=== PATIENT | female | born 1995 | race Caucasian/White ===

== ENCOUNTER 2025-01-22 09:20 | Emergency (ER) | payer MEDICAID, SELFPAY ==
--- NOTE | ~2025-01-22 | US_ITS ---
EXAMINATION: US venous doppler LE , 01/22/2025 11:38 EXTENDED INSURANCE CLERK HISTORY: LEFT LEG PAIN Comparison: None Technique: Gan-scale and color Doppler images were attempted of the lower saphenofemoral junction, common femoral vein,superficial femoral vein, proximal deep femoral vein, proximal deep femoral vein, popliteal vein and posterior tibial veins. Findings: Deep Venous System:Normal flow, augmentation and compressibility. No echogenic thrombus identified. The contralateral saphenofemoral junction appears unremarkable. Superficial Venous SystemNo superficial thrombophlebitis. Soft tissues: Soft tissues are unremarkable. Impression: Negative for DVT. Reviewed, dictated and finalized at location P. NDED INSURANCE CLERK Impression: Negative for DVT.
[2025-01-22 09:22] VITALS: BP 154/100; PULSE 96; RESP 16; TEMP 36.1; O2SAT 100
[2025-01-22 12:17] VITALS: BP 148/105; PULSE 76; RESP 16; O2SAT 100
--- NOTE | 2025-01-22 12:41 | ED.EXTPRO ---
HPI - Extremity Problem General Chief complaint: Extremity Problem,Nontraumatic Stated complaint: left leg pain for 6 months Time Seen by Provider: 01/22/25 10:56 Source: patient Mode of arrival: ambulatory Limitations: no limitations History of Present Illness HPI Narrative: Patient is a 29-year-old female who presents the ED with report of pain throughout her left lateral thigh. Patient reports she has had pain for the past 4-6 months. She has home pain from her left lateral knee up into her left lateral hip. To has previously seen a surgeon for this in [place] and told she had ligament and muscle injury. Was referred to physical therapy and also provided with meloxicam. She denies improvement with either of these. Denies any recent fall or injury. Denies numbness or swelling. Denies history of blood clots. Related Data Allergies Allergy/AdvReac Type Severity Reaction Status Date / Time No Known Allergies Allergy Verified 01/22/25 09:25 Review of Systems Review of Systems: All systems reviewed & are unremarkable except as noted in HPI. All systems reviewed & are unremarkable except as noted in HPI and below Exam Narrative: GENERAL: Well appearing, morbidly obese with BMI of 50.0, non-toxic, in no acute distress. HEAD: Normocephalic, atraumatic. RESPIRATORY: Airway patent, respirations nonlabored. Clear to auscultation bilaterally, no rales, rhonchi, wheezing. CARDIOVASCULAR: Regular rate and rhythm without murmurs, rubs, or gallops. Pedal pulses intact and easily palpable MUSCULOSKELETAL: Moves all extremities. No gross deformities. No appreciable swelling throughout LLE. Minimal TTP throughout L lateral thigh SKIN: Warm, dry, normal color. Normal capillary refill throughout left foot and toes. NEURO: A&O X3. Speech clear. Cranial nerves II-XII grossly intact. Steady gait. No ataxic movements. PSYCHIATRIC: Appropriate mood and affect. Normal interaction. Course Vital Signs Vital signs: Vital Signs Temperature 97.0 F L 01/22/25 09:22 Pulse Rate 96 01/22/25 09:22 Respiratory Rate 16 01/22/25 09:22 Blood Pressure 154/100 H 01/22/25 09:22 Pulse Oximetry 100 01/22/25 09:22 Oxygen Delivery Room Air 01/22/25 09:22 Temperature 97.0 F L 01/22/25 09:22 Pulse Rate 76 01/22/25 12:17 Respiratory Rate 16 01/22/25 12:17 Blood Pressure 148/105 H 01/22/25 12:17 Pulse Oximetry 100 01/22/25 12:17 Oxygen Delivery Room Air 01/22/25 09:22 MDM - Extremity (Nontraumatic) MDM Narrative Medical decision making narrative: Patient?s injury is consistent with musculoskeletal etiology. No signs of neurologic or vascular compromise on physical examination. Compartments are soft without signs of compartment syndrome. Venous Doppler US negative for DVT. Patient denies any recent hx of fall/injury to suggest need for further XR imaging. Patient advised to follow-up with client success specialist for further evaluation of previously diagnosed muscular/ligament injury. Discussed rice therapy. Discussed return precautions. Discharged in stable condition Medical Records Attestation: I reviewed the patient's medical records. Imaging Data Attestation: I personally reviewed and interpreted this imaging study as follows: Radiologist's impression: ITS Impressions Venous Doppler Study 01/22/25 12:15 Impression: Negative for DVT. Discharge Plan Discharge Clinical Impression: Chronic pain of left lower extremity Patient Disposition: Home Condition: Stable Instructions: Antibiotic Form, Leg Sprain (ED) Additional Instructions: Follow-up with your client success specialist for further evaluation. Continue ice, heat, Tylenol/ibuprofen as needed for pain. Return for new injury, severe pain, numbness, or any other symptoms of concern. Patient Language: Italian Follow-up/Referrals: Sacha Boo MD [Physician, Orthopedics] Referral Note: ORTHOPEDICS PHYSICIAN,DAY GUARD [Primary Care Provider, Internal Medicine] Time of Disposition: 12:43
[2025-01-22] MEDS: KETOROLAC (*BKC) 60 MG/2 ML VIAL IM (13:09)
--- OUTSIDE RECORDS SUMMARY | 2025-01-22 14:23 | XMS_ITS | Encounter Summary ---
Author Organization [facility] Health Address [address] [place] [address] Care Team Providers Care Agility Instructor Name Role Phone Unknown, Provider Primary Care Provider Unavaila ble Encounter Details Date Type Department Care Team (Late st Contact Info) Description 11/29/2017 Ophth Exam [facility] [address] [place] [address] Rajan Jimenez MD [address] [place] [address] Social History Tobacco Use Types Packs/Day Years Used Date Smoking Tobacco: Every Day Cigarettes 1 14 Smokeless Tobacco: Current Alcohol Use Standard Drinks/Week Comments No 0 (1 standard drink = 0.6 oz pur e alcohol) Comments No Sex and Gender Information Value Date Recorded Sex Assigned at Not on file 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 Answer Date of Assessment Author No 07/18/2017 6:25 PM Landy Conte RN * Is person blind or have serious difficulty seeing? Answer Date of Assessment Author No 07/18/2017 6:25 PM Landy Conte RN * Does person have serious difficulty walking/climbing stairs? Answer Date of Assessment Author No 07/18/2017 6:25 PM Landy Conte RN * Does person have difficulty dressing/bathing? Answer Date of Assessment Author No 07/18/2017 6:25 PM Landy Conte RN * Does person have difficulty doing errands alone? Answer Date of Assessment Author No 07/18/2017 6:25 PM Landy Conte RN documented as of this encounter Mental Status * Does person have difficulty concentrating/remembering/making decisions? Answer Entry Date Author No 07/18/2017 6:25 PM Landy Conte RN documented in this encounter Plan of Treatment Not on file documented as of this encounter Visit Diagnoses Not on filedocumented in this encounter Care Teams Agility Instructor Relationship Specialty Start Date End Date Unknown, Provider PCP - General 07/18/24 documented as of this encounter
--- OUTSIDE RECORDS SUMMARY | 2025-01-22 14:23 | XMS_ITS | Clinical Summary ---
Author Organization [facility] Address [address] [place] [address] Phone Care Team Providers Care Industrial Organizational Psychologist Name Role Phone Unavailable Primary Care Provider Unavailabl e Allergies Active Allergy Reactions Criticality Noted Date Comments Cinnamon Anaphylaxis,Rash High 07/18/2017 Medications albuterol sulfate HFA 90 mcg/actuation aerosol inhaler Take 2 Puffs by inhalation every 6 hours as needed. Active naproxen (NAPROSYN) 500 mg tablet Take 1 Tablet (500 mg) by mouth every 12 hours as needed for Pain, Moderate. 30 Tablet 1 4 Active estradioL (ESTRACE) 0.01% (0.1 mg/g) vaginal cream Insert vaginally daily. Active famotidine (PEPCID) 20 mg tablet Take 20 mg by mouth 2 times daily. Active Active Problems Problem Noted Date Diagnosed Date Group beta Strep positive 07/23/2017 07/18/2017 Encounters Date Type Department Care Team Description 12/16/2024 External Device Data [facility] ABSTRACTION Provider, Abstract 11/04/2024 External Device Data [facility] ABSTRACTION Provider, Abstract 10/22/2024 External Device Data [facility] ABSTRACTION Provider, Abstract from Last 3 Months Social History Tobacco Use Types Packs/Day Years Used Date Smoking Tobacco: Every Day Cigarettes Tobacco Cessation:Ready to Q uit: Not Asked; Counseling Given: Not Answered Alcohol Use Standard Drinks/Week Comments Yes 0 (1 standard drink = 0.6 oz pur e alcohol) Occasionally Feeling Safe Answer Date Recorded Are you in a relationship wi th someone who hurts you emotionally and/or physically? No 06/13/2023 Food Insecurity Answer Date Recorded Social/Environmental Concerns No concerns Transportation Needs Answer Date Record ed Social/Environmental Concerns No concerns Housing Stability Answer Date Recorded Social/Environmental Concerns No concerns Utility Needs Answer Date Recorded Social/Environmental Concerns No concerns Comments No Sex and Gender Information Value Date Recorded Sex Assigned at Not on file Legal Sex Female 1:02 PM CDT Gender Identity Not on file Sexual Orientation Not on file Last Filed Vital Signs Vital Sign Reading Time Taken Comments Blood Pressure 120/70 06/27/2023 10:59 AM CDT Pulse 70 06/27/2023 10:59 AM CDT Temperature 36.7 C (98 F) 06/27/2023 10:59 AM CDT Respiratory Rate 18 06/13/2023 11:31 PM CDT Oxygen Saturation 99% 06/27/2023 10:59 AM CDT Inhaled Oxygen Concentration - - Weight 117.2 kg (258 lb 6 oz) 06/27/2023 10:59 A M CDT Height 165.1 cm (5' 5) 06/27/2023 10:59 AM CDT Body Mass Index 43 06/27/2023 10:59 AM CDT Plan of Treatment Health Maintenance Due Date Last Done Comments HEPATITIS B VACCINES (1 of 3 - 19+ 3-dose series) 2014 HPV/Cotest (21-29) 2016 HPV VACCINES (1 - 3-dose SCDM series) 2022 INFLUENZA VACCINE (#1) 2024 07/09/2018 CERVICAL CANCER SCREENING 05/01/2026 PAP SMEAR 05/01/2026 05/01/2023 DTAP/TDAP/TD VACCINES (3 - Td or Tdap) 07/09/2028, 11/29/2017 Medical Devices Implanted Type Area Electronic Equipment Repairmen Device Identifier Shelf Expiration Date Model / Serial / Lot Iud Control Left Arm Procedures Procedure Name Priority Date/Time Associated Diagnosis Comments CERV/VAG CYTO AGE BASED SCREEN PAP Routine 05/01/2023 12:24 PM FABRICATOR FOAM RUBBER Well woman exam with routine gynecological exam from Last 3 Months or Most Recently Relevant to Health Maintenance Results * CERV/VAG CYTO AGE BASED SCREEN PAP (05/01/2023 12:24 PM FABRICATOR FOAM RUBBER) COMMENT (PAP): Robbin AminJoy Carrillo Comment: This order for age-based cervical cancer and STI screening follows ACOG guidelines(PB 168, 140, JPD234). See individual assays for performing site location. CLINICAL INFORMATION Robbin EloisaJoy Carrillo Comment:None given LAST MENSTRUAL PERIOD Robbin Carrillo Comment:02/19/2023 PREV PAP: Robbin EloisaJoy Carrillo Comment:NONE GIVEN PREV BX: Robbin EloisaJoy Carrillo Comment:NONE GIVEN SOURCE Robbin AminJoy Carrillo Comment:Endocervix ADEQUACY: Robbin Carrillo Comment: Satisfactory for evaluation. Endocervical/transformation zone component present. PAP INTERP Robbin Carrillo Comment: Cytology Results: Negative for intraepithelial lesion or malignancy. CYTOLOGY INFECTION Q uradha Marielos Carrillo Comment: Shift in vaginal qi suggestive of bacterial vaginosis. COMMENT (PAP TEST) Q madeline Marielos Carrillo Comment: This Pap test has been evaluated with computer assisted technology. RETAIL SALES DIRECTOR: Gustabo Carrillo Comment: KMS, CT(ASCP) CT Screening location: [place] [address] [address] Marielos Carrillo Comment: EXPLANATORY NOTE: The Pap is a screening test for cervical cancer. It is not a diagnostic test and is subject to false negative and false positive results. It is most reliable when a satisfactory sample, regularly obtained, is submitted with relevant clinical findings and history, and when the Pap result is evaluated along with historic and current clinical information. Test Performed at: [place] [address] [address] [address] Sheryl Narvaez Genital SWAB OF ENDOCERVIX / Unknown 05/01/2023 12:24 PM FABRICATOR FOAM RUBBER 05/01/2023 10:51 PM FABRICATOR FOAM RUBBER Beck Shoemaker MD PATHOLOGY/CYTOLOGY ORDERABLE S Final Result [facility] [phone] [place] [address] [address] [address] from Last 3 Months or Most Recently Relevant to Health Maintenance Insurance [employer] [place] [employer] [facility] [employer] Advance Directives For more information, please contact: [phone] * Full Code (Latest Code Status on File) Date Activated Date Inactivated Comments 06/07/2023 6:09 AM 06/07/2023 6:16 PM
--- OUTSIDE RECORDS SUMMARY | 2025-01-22 14:23 | XMS_ITS | Data Portability ---
Author Organization [facility] Address [address] [place] [address] Assessment No assessment recorded. Plan of Treatment Reminders Order Date Submit Date Provider Last Modified By Organization Details Last Modified Time Details Appointments None recorded. Lab drug screen, urine 2024 025 [facility], [address], [place], [address], 17:21:04 ferritin, serum or plasma 2024 025 [facility], [address], [place], [address], 13:11:49 iron, serum 2024 025 [facility], [address], [place], [address], 5 13:11:48 TSH, ultra-sensi tive, serum 2024 025 [facility], [address], [place], [address], 5 09:14:27 basic metabolic 1998 panel, serum or plasma 2024 025 [facility], [address], [place], [address], 5 09:14:22 CBC 2024 025 [facility], [address], [place], [address], 5 09:14:28 urinalysis macro (dipstick) panel, urine 2024 025 [facility], [address], [place], [address], 5 09:14:25 HbA1c (hemoglobin A1c), blood 2024 025 [facility], [address], [place], [address], 5 09:14:24 lipid panel, serum 2024 025 [facility], [address], [place], [address], 5 09:14:21 test, urine 2021 022 [email or web address] In-Office Order, Internal Use Only DO Not Attach Compendium DO Not Attach Compendium, Do Not Delete/merge, [id number] 2 15:08:33 Referral physical therapist referral - left cubital tunnel syndrome 2023 024 [email or web address] [facility], [address] [place], [address], 4 18:50:05 Procedures None recorded. Surgeries None recorded. Imaging XR, knee - Recent fall, pain lateral aspect of the left Patella 2024 025 [facility], [address] [place], [address], 5 15:51:06 Medication Orders ketorolac 60 mg/2 mL intramuscul ar solution 2024 025 [email or web address] Not available 5 16:38:48 ketorolac 10 mg tablet 2024 025 [facility] #[id number], [address], [place], [address], 15:34:06 naproxen 500 mg tablet 2024 025 [facility] #[id number], [address], [place], [address], 15:34:15 Patient TargetsNo targets recorded. Patient Instructions Encounter Date Encounter Id Patient Instructions Last Modified By Organization Details Last Modified Time 10/29/2023 [id number] On the date of this encounter, I was immediately available to assist the resident/fellow in the care of the patient, and have reviewed and agree with the resident s findings and plan of care. ~MD Abhi [email or web address] Not available 11/06/2023 10:25:55 04/07/2024 [id number] Local care ER report, please Labs Complete the course of Bactrim Use Naproxen or Ibuprofen, but not both Follow up in 3 weeks [email or web address] Not available 04/07/2024 13:08:49 06/04/2024 [id number] A healthy lifestyle: care instructions [email or web address] Not available 06/04/2024 12:50:11 body mass index: care instructions [email or web address] Not available 06/04/2024 12:50:11 learning about healthy weight [email or web address] Not available 06/04/2024 12:50:11 Labs, old and ne w orders Xray Motrin Follow up in 2 weeks [email or web address] Not available 06/04/2024 12:47:55 06/17/2024 [id number] Orthopedics as referred Ketorolac (Toradol) and Tylenol Stop Naproxen and all other NSAIDS Follow up in 6 weeks [email or web address] Not available 06/17/2024 15:35:50 Reason for Referral Physical Therapist Referral for Ulnar nerve entrapment at elbow left cubital tunnel syndrome left cubital tunnel syndrome Referring Physician: Patricia Mcpherson, [employer], Encounter Date: 10/29/2023 Results Created Date Observation Date Name Description Value Unit Range Abnormal Flag Note LastModifiedBy Organization Detail LastModifiedTime 09/02/19 22 09/01/2021 pregn maurizio test, urine HCG negati ve Not Available In-Office Order Internal Use Only DO Not Attach Compendium DO Not Attach Compendium, Do Not Delete/merge, [id number] 09/01/2021 11:09:47 06/05/19 25 06/05/2024 LIPID PANEL cholesterol, total 170 mg/dL 100-19 9 Not Available [facility] ([facility]) [address] [place], [address], 06/05/2024 09:14:21 06/05/19 25 06/05/2024 LIPID PANEL triglyceride s 155 mg/dL 0-149 above high normal Not Available [facility] ([facility]) [address] [place], [address], 06/05/2024 09:14:21 06/05/19 25 06/05/2024 LIPID PANEL HDL cholesterol 46 mg/dL >39 Not Available [facility] ([facility]) [address] [place], [address], 06/05/2024 09:14:21 06/05/19 25 06/05/2024 LIPID PANEL VLDL cholesterol em 27 mg/dL 5-40 Not Available [facility] ([facility]) [address] [place], [address], 06/05/2024 09:14:21 06/05/19 25 06/05/2024 LIPID PANEL LDL chol calc ([facility]) 97 mg/dL 0-99 Not Available [facility] ([facility]) [address] [place], [address], 06/05/2024 09:14:21 06/05/19 25 06/05/2024 BASIC METAB OLIC PANEL (7) glucose 90 mg/dL 70-99 Not Available [facility] ([facility]) [address] [place], [address], 06/05/2024 09:14:22 06/05/19 25 06/05/2024 BASIC METAB OLIC PANEL (7) BUN 11 mg/dL 6-20 Not Available [facility] ([facility]) [address] [place], [address], 06/05/2024 09:14:22 06/05/19 25 06/05/2024 BASIC METAB OLIC PANEL (7) creatinine 0.72 mg/dL 0.57-1 .00 Not Available [facility] ([facility]) [address] [place], [address], 06/05/2024 09:14:22 06/05/19 25 06/05/2024 BASIC METAB OLIC PANEL (7) eGFR 116 mL/mi n/1.7 3 >59 Not Available [facility] ([facility]) [address] [facility], [place], [address], 06/05/2024 09:14:22 06/05/19 25 06/05/2024 BASIC METAB OLIC PANEL (7) BUN/creatini ne ratio 15 9-23 Not Available [facility] ([facility]) [address] [place], [address], 06/05/2024 09:14:22 06/05/19 25 06/05/2024 BASIC METAB OLIC PANEL (7) sodium 140 mmol/ L 134-14 4 Not Available [facility] ([facility]) [address] [place], [address], 06/05/2024 09:14:22 06/05/19 25 06/05/2024 BASIC METAB OLIC PANEL (7) potassium 4.7 mmol/ L 3.5-5. 2 Not Available [facility] ([facility]) [address] [place], [address], 06/05/2024 09:14:22 06/05/19 25 06/05/2024 BASIC METAB OLIC PANEL (7) chloride 103 mmol/ L 96-106 Not Available [facility] ([facility]) [address] [facility], [place], [address], 06/05/2024 09:14:22 06/05/19 25 06/05/2024 BASIC METAB OLIC PANEL (7) carbon dioxide, total 22 mmol/ L 20-29 Not Available [facility] ([facility]) [address] [facility], [place], [address], 06/05/2024 09:14:22 06/05/19 25 06/05/2024 MICRO SCOPI C EXAMI NATIO N WBC 6-10 /hpf 0-5 abnormal Not Available [facility] ([facility]) [address] [facility], [place], [address], 06/05/2024 09:14:23 06/05/19 25 06/05/2024 MICRO SCOPI C EXAMI NATIO N RBC 3-10 /hpf 0-2 abnormal Not Available [facility] ([facility]) [address] [facility], [place], [address], 06/05/2024 09:14:23 06/05/19 25 06/05/2024 MICRO SCOPI C EXAMI NATIO N epithelial cells (non renal) 0-10 /hpf 0-10 Not Available [facility] ([facility]) [address] [facility], [place], [address], 06/05/2024 09:14:23 06/05/19 25 06/05/2024 MICRO SCOPI C EXAMI NATIO N casts NONE SEEN /lpf nonese en Not Available [facility] ([facility]) [address] [facility], [place], [address], 06/05/2024 09:14:23 06/05/19 25 06/05/2024 MICRO SCOPI C EXAMI NATIO N bacteria FEW nonese en/few Not Available [facility] ([facility]) [address] [facility], [place], [address], 06/05/2024 09:14:23 04/02/20 25 06/05/2024 HEMOG LOBIN A1C hemoglobin A1C 5.5 % 4.8-5. 6 Predi abete s: 5.7 - 6.4 Diabe kelley: >6.4 Glyce alin contr ol for adult s with diabe kelley: <7.0 Not Available [facility] ([facility]) [address] [place], [address], 06/05/2024 09:14:24 06/05/19 25 06/05/2024 URINA LYSIS , ROUTI NE specific gravity 1.028 1.005- 1.030 Not Available [facility] ([facility]) [address] [place], [address], 06/05/2024 09:14:25 06/05/19 25 06/05/2024 URINA LYSIS , ROUTI NE pH 5.5 5.0-7. 5 Not Available [facility] ([facility]) [address] [place], [address], 06/05/2024 09:14:25 06/05/19 25 06/05/2024 URINA LYSIS , ROUTI NE urine-color YELLOW yellow Not Available [facility] ([facility]) [address] [place], [address], 06/05/2024 09:14:25 06/05/19 25 06/05/2024 URINA LYSIS , ROUTI NE appearance CLEAR clear Not Available [facility] ([facility]) [address] [place], [address], 06/05/2024 09:14:25 06/05/19 25 06/05/2024 URINA LYSIS , ROUTI NE WBC esterase 1+ negati ve abnormal Not Available [facility] ([facility]) [address] [place], [address], 06/05/2024 09:14:25 06/05/19 25 06/05/2024 URINA LYSIS , ROUTI NE protein TRACE negati ve/tra ce Not Available [facility] ([facility]) [address] [facility], [place], [address], 06/05/2024 09:14:25 06/05/1906/05/2024 URINA LYSIS , ROUTI NE glucose NEGATI VE negati ve Not Available [facility] ([facility]) [address] [place], [address], 06/05/2024 09:14:25 06/05/1906/05/2024 URINA LYSIS , ROUTI NE ketones TRACE negati ve abnormal Not Available [facility] ([facility]) [address] [place], [address], 06/05/2024 09:14:25 06/05/1906/05/2024 URINA LYSIS , ROUTI NE occult blood 2+ negati ve abnormal Not Available [facility] ([facility]) [address] [place], [address], 06/05/2024 09:14:25 06/05/1906/05/2024 URINA LYSIS , ROUTI NE bilirubin NEGATI VE negati ve Not Available [facility] ([facility]) [address] [place], [address], 06/05/2024 09:14:25 06/05/1906/05/2024 URINA LYSIS , ROUTI NE urobilinogen ,semi-qn 0.2 mg/dL 0.2-1. 0 Not Available [facility] ([facility]) [address] [place], [address], 06/05/2024 09:14:25 06/05/1906/05/2024 URINA LYSIS , ROUTI NE nitrite, urine NEGATI VE negati ve Not Available [facility] ([facility]) [address] [place], [address], 06/05/2024 09:14:25 06/05/1906/05/2024 URINA LYSIS , ROUTI NE microscopic examination SEE BELOW: Micro josesito baker was indic ated and was perfo rmed. Not Available [facility] ([facility]) [address] [facility], [place], [address], 06/05/2024 09:14:25 06/05/1906/05/2024 TSH TSH 1.170 uIU/m L 0.450- 4.500 Not Available [facility] ([facility]) [address] [facility], [place], [address], 06/05/2024 09:14:27 06/05/1906/05/2024 CBC, PLATE LET, NO DIFFE RENTI AL WBC 9.4 x10e3 /uL 3.4-10 .8 Not Available [facility] ([facility]) [address] [place], [address], 06/05/2024 09:14:28 06/05/1906/05/2024 CBC, PLATE LET, NO DIFFE RENTI AL RBC 4.78 x10e6 /uL 3.77-5 .28 Not Available [facility] ([facility]) [address] [place], [address], 06/05/2024 09:14:28 06/05/1906/05/2024 CBC, PLATE LET, NO DIFFE RENTI AL hemoglobin 14.0 g/dL 11.1-1 5.9 Not Available [facility] ([facility]) [address] [place], [address], 06/05/2024 09:14:28 06/05/1906/05/2024 CBC, PLATE LET, NO DIFFE RENTI AL hematocrit 43.1 % 34.0-4 6.6 Not Available [facility] ([facility]) [address] [place], [address], 06/05/2024 09:14:28 06/05/1906/05/2024 CBC, PLATE LET, NO DIFFE RENTI AL MCV 90 fL 79-97 Not Available [facility] ([facility]) [address] [facility], [place], [address], 06/05/2024 09:14:28 06/05/1906/05/2024 CBC, PLATE LET, NO DIFFE RENTI AL MCH 29.3 pg 26.6-3 3.0 Not Available [facility] ([facility]) [address] [facility], [place], [address], 06/05/2024 09:14:28 06/05/1906/05/2024 CBC, PLATE LET, NO DIFFE RENTI AL MCHC 32.5 g/dL 31.5-3 5.7 Not Available [facility] ([facility]) [address] [place], [address], 06/05/2024 09:14:28 06/05/1906/05/2024 CBC, PLATE LET, NO DIFFE RENTI AL RDW 12.2 % 11.7-1 5.4 Not Available [facility] ([facility]) [address] [place], [address], 06/05/2024 09:14:28 06/05/1906/05/2024 CBC, PLATE LET, NO DIFFE RENTI AL platelets 375 x10e3 /uL 150-45 0 Not Available [facility] ([facility]) [address] [place], [address], 06/05/2024 09:14:28 06/05/1906/05/2024 IRON iron 84 ug/dL 27-159 Not Available [facility] ([facility]) [address] [place], [address], 06/05/2024 13:11:48 06/05/19 25 06/05/2024 JOSE A TIN ferritin 59 NG/mL 15-150 Not Available [facility] ([facility]) [address] [place], [address], 06/05/2024 13:11:49 06/18/19 25 06/17/2024 [id number] 7 DRUG- SCR drug screen comment: COMMEN T This janki sis is perfo rmed by immun oassa y. Posit rocky findi ngs are uncon firme d janki tical test resul ts; if resul ts do not suppo rt expec anyi clini em findi ng, confi rmati on by an alter rashad metho dolog y is recom anahi d. Patie nt metab olic varia bles, speci fic drug chemi stry, and speci men carlos cteri stics can affec t test outco me. Techn ical consu ltati on is avail able at dionte tay [email or web address] [email or web address] om, or call toll free [phone]. Not Available [facility] ([facility]) [address] [facility], [place], [address], 06/18/2024 17:21:04 06/18/19 25 06/18/2024 [id number] 0 7 DRUG- SCR amphetamines , urine NEGATI VE NG/mL cutoff =1000 Amphe tamin e test inclu kathleen Amphe tamin e and Metha mphet amine . Not Available [facility] ([facility]) [address] [place], [address], 06/18/2024 17:21:04 06/18/19 25 06/18/2024 [id number] 0 7 DRUG- SCR barbiturates NEGATI VE NG/mL cutoff =200 Not Available [facility] ([facility]) [address] [place], [address], 06/18/2024 17:21:04 06/18/19 25 06/18/2024 [id number] 0 7 DRUG- SCR benzodiazepi brandy NEGATI VE NG/mL cutoff =300 Not Available [facility] ([facility]) [address] [place], [address], 06/18/2024 17:21:04 06/18/19 25 06/18/2024 [id number] 0 7 DRUG- SCR cannabinoid POSITI VE NG/mL cutoff =50 abnormal Not Available [facility] ([facility]) [address] [place], [address], 06/18/2024 17:21:04 06/18/19 25 06/18/2024 [id number] 0 7 DRUG- SCR cocaine (metab.) NEGATI VE NG/mL cutoff =300 Not Available [facility] ([facility]) [address] [place], [address], 06/18/2024 17:21:04 06/18/19 25 06/18/2024 [id number] 0 7 DRUG- SCR opiates NEGATI VE NG/mL cutoff =300 Opiat e test inclu kathleen Codei ne and Morph ine only. Not Available [facility] ([facility]) [address] [facility], [place], [address], 06/18/2024 17:21:04 06/18/19 25 06/18/2024 [id number] 0 7 DRUG- SCR phencyclidin e NEGATI VE NG/mL cutoff =25 Not Available [facility] ([facility]) [address] [facility], [place], [address], 06/18/2024 17:21:04 06/05/19 25 06/04/2024 XR, knee No observ ation record ed. [facility] [address] [place], [address], 06/17/2024 15:22:22 10/25/19 25 10/02/2024 CT, abdom en + pelvi s, w/ contr ast No observ ation record ed. [facility] [address] [place], [address], 10/28/2024 11:54:23 Result Notes None recorded. Problems Name Problem SNOMED Code Status Onset Date Resolution Date Notes Provider Name and Address Organization Details Recorded Time History of asthma 308516003 Active 2018 Patricia Mcpherson MD Attn: Vaishali tiarra,[address] [place], [address], [facility] 4 18:55:21 Nicotine dependence 45186541 Active 2018 Patricia Mcpherson MD Attn: Vaishali mayen,[address] [place], [address], [facility] 4 18:55:26 History of colostomy 195763326 Active 2018 Patricia Mcpherson MD Attn: Vaishali mayen,[address] [place], [address], [facility] 4 18:55:24 Uncontrolle d type 2 diabetes mellitus 321973591 Active 2018 Patricia Mcpherson MD Attn: Vaishali mayen,[address] [place], [address], [facility] 4 18:55:18 Ulnar nerve entrapment at elbow 922650493 Active 2023 Patricia Mcpherson MD Attn: Vaishali mayen,[address] [place], [address], [facility] 4 18:55:16 Pain of left knee joint 7672495316449 07 Active 2024 Errol Durham MD Attn: Vaishali mayen,[address] [place], [address], [facility] 5 15:25:52 Problem Notes None recorded. Procedures Surgical History Date Name Laterality Status Provider Name and Address Organization Details Recorded Time 09/08/19 24 oophorectomy completed Iliana Montoya [place] [facility] 10/29/2023 16:45:41 09/04/19 18 closure of colostomy completed Errol Durham MD Attn: Saba,[address] [place], [address], [facility] 07/09/2018 11:16:39 Tonsillectomy completed Ramona Srivastava MA [facility] 07/09/2018 10:57:25 Imaging Results None recorded. Procedure Notes None recorded. Medical Equipment None Reported. Allergies Allergen ID Allergen Name Allergen Category Reaction Reaction Severity Criticality Documentation Date Start Date Code Code System Note Provider Name and Address Organization Details Recorded Time 270363 cinnamon preparati on food,medi cation anaphylax is Not available Not available 07/28/2021 11812 5 RxNorm Kayla alvarez, [facility] 2 12:03:02 Medications Name Sig Start Date Stop Date Status Note LastModified by Organization Details LastModified Time Miralax 17 gram/dose oral powder Take 17 g every day by oral route around the clock for 45 days. 07/28 completed Not Available Not Available Not Available terconazole 0.4 % vaginal cream INSERT 5 GRAMS (1 APPLICATO RFUL) VAGINALLY DAILY AT BEDTIME FOR 7 DAYS. 04/07 completed Not Available Not Available Not Available clindamycin HCl 300 mg capsule TAKE 1 CAPSULE BY MOUTH EVERY 8 HOURS FOR 7 DAYS active Not Available Not Available No t Available ibuprofen 800 mg tablet TAKE 1 TABLET BY MOUTH EVERY 12 HOURS NEEDED WITH FOOD 06/04 completed Not Available Not Available Not Available hydrocodone 5 mg-acetamin ophen 325 mg tablet TAKE 1 TABLET BY MOUTH EVERY 6 HOURS NEEDED FOR PAIN CONTROL active Not Available Not Available No t Available meloxicam 15 mg tablet TAKE 1 TABLET BY MOUTH EVERY DAY active Not Available Not Available No t Available prednisone 20 mg tablet TAKE 3 TABLETS ORAL ROUTE ONCE DAILY FOR 5 DAYS active Not Available Not Available No t Available metronidazo le 500 mg tablet TAKE 1 TABLET ORAL ROUTE EVERY 12 HOURS 04/07 completed Not Available Not Available Not Available sulfamethox azole 800 mg-trimetho prim 160 mg tablet TAKE 1 TABLET BY MOUTH EVERY 12 HOURS DIRECTED FOR 3 DAYS 06/17 completed Not Available Not Available Not Available tramadol 50 mg tablet TAKE 1 TABLET EVERY 8 HOURS BY ORAL ROUTE DIRECTED FOR 7 DAYS, FOR SEVERE KNEE PAIN. active Not Available Not Available No t Available acetaminoph en ER 650 mg tablet,exte nded release TAKE 2 TABLETS BY MOUTH EVERY 8 HOURS NEEDED FOR 7 DAYS, FOR PAIN. active Not Available Not Available No t Available ketorolac 10 mg tablet TAKE 1 TABLET BY MOUTH EVERY 6 HOURS NEEDED FOR 5 DAYS, FOR SEVERE PAIN. active Not Available Not Available No t Available oxycodone-a cetaminophe n 5 mg-325 mg tablet TAKE 1 TABLET BY MOUTH EVERY 4 HOURS NEEDED FOR PAIN active Not Available Not Available No t Available hydrocodone 7.5 mg-acetamin ophen 325 mg tablet TAKE 1 TABLET BY MOUTH EVERY 12 HOURS NEEDED FOR 30 DAYS 07/28 completed Not Available Not Available Not Available erythromyci n 5 mg/gram (0.5 %) eye ointment 07/09 completed Not Available Not Available Not Available oseltamivir 75 mg capsule TAKE 1 CAPSULE BY MOUTH TWICE A DAY FOR 5 DAYS 04/07 completed Not Available Not Available Not Available ibuprofen 600 mg tablet 07/09 completed Not Available Not Available Not Available albuterol sulfate HFA 90 mcg/actuati on aerosol inhaler INHALE 2 PUFFS BY MOUTH EVERY 4 HOURS NEEDED FOR WHEEZE OR FOR SHORTNESS OF BREATH 04/07 completed Not Available Not Available Not Available ketorolac 60 mg/2 mL intramuscul ar solution Inject 2 mL every day by intramusc ular route as directed for 1 day. 2024 active Not Available Not Available Not Avai lable naproxen 500 mg tablet TAKE 1 TABLET TWICE A DAY BY ORAL ROUTE DIRECTED FOR 3 DAYS, FOR PAIN. 06/17 completed Not Available Not Available Not Available amoxicillin 875 mg-potassiu m clavulanate 125 mg tablet 07/09 completed Not Available Not Available Not Available oxycodone 5 mg tablet TAKE 1 TABLET BY MOUTH EVERY 4 HOURS NEEDED FOR PAIN MAX DAILY AMOUNT: 6 TABLETS 04/07 completed Not Available Not Available Not Available nitrofurant oin monohydrate /macrocryst als 100 mg capsule TAKE 1 CAPSULE BY MOUTH EVERY 12 HOURS FOR 5 DAYS active Not Available Not Available No t Available metformin 06/26 completed Not Available Not Available Not Available Miralax 06/25 completed Not Available Not Available Not Available Vitals Date Recorded Body height Body mass index (BMI) Body weight Body temperature Heart rate Oxygen saturation Systolic And Diastolic Provider Name and Address Organization Details Last Updated DateTime 5 162.56 cm 45 kg/m2 797269. 2 g 98.1 [degF] 92 /min 99 % 124/80 mm[Hg] Yue Truong MA [facility] 5 11:54:57 Date Recorded Body height Body mass index (BMI) Body weight Body temperature Heart rate Oxygen saturation Systolic And Diastolic Provider Name and Address Organization Details Last Updated DateTime 5 162.56 cm 47.5 kg/m2 063286. 73 g 97.3 [degF] 70 /min 97 % 118/80 mm[Hg] Maddie Barrera [facility] 5 12:20:27 Date Recorded Body height Body mass index (BMI) Body weight Body temperature Heart rate Oxygen saturation Systolic And Diastolic Provider Name and Address Organization Details Last Updated DateTime 5 162.56 cm 47.9 kg/m2 844568. 55 g 97.5 [degF] 85 /min 97 % 130/78 mm[Hg] Maddie Barrera [facility] 5 14:57:54 Date Recorded Body height Body mass index (BMI) Body weight Systolic And Diastolic Provider Name and Address Organization Details Last Updated DateTime 09/01/2021 162.56 cm 42.4 kg/m2 208711.32 g 116/70 mm[Hg] Yue Truong MA [facility] 09/01/2021 11:01:41 Date Recorded Body weight Oxygen saturation Heart rate Body mass index (BMI) Body height Systolic And Diastolic Provider Name and Address Organization Details Last Updated DateTime 4 395860. 46 g 98 % 70 /min 43.6 kg/m2 162.56 cm 126/82 mm[Hg] Iliana Montoya MA [facility] 4 16:48:28 Social History Question Answer Notes LastModified by Organizat ion Details LastModified Time Tobacco Smoking Status Current Every Day Smoker LAURI Henderson, [facility] 07/09/2018 10:58:13 What Is Your Level Of Caffeine Consumption? Heavy Information not available 07/09/2018 How Much Tobacco Do You Chew? None Information not available 07/09/2018 What Type Of Diet Are You Following? REGULAR Information not available 07/09/2018 Are There Any Guns Present In Your Home? No Information not available 07/09/2018 Hard Of Hearing Or Deaf In One Or Both Ears? No Information not available 07/09/2018 Legally Blind In One Or Both Eyes? No Information not available 07/09/2018 Marital Status Single Informatio n not available 07/09/2018 What Was The Date Of Your Most Recent Tobacco Screening? 06/17/2024 [email or web address] Information not available 06/17/2024 Performs Monthly Self-breast Exam? No Information not available 07/09/2018 Seat Belts Used Routinely Yes Information not available 07/09/2018 Smoke Alarm In Home Yes Information not available 07/09/2018 At What Age Did You Start Smoking Tobacco? 13 Information not available 07/09/2018 How Much Tobacco Do You Smoke? 0.25 PPD 2 Or 3 A Day [email or web address] Information not available 07/28/2021 Has Tobacco Cessation Counseling Been Provided? Yes [email or web address] Information not available 07/09/2018 On What Date Was Tobacco Cessation Counseling Provided? 06/17/2024 [email or web address] Information not available 06/17/2024 How Many Years Have You Smoked Tobacco? 10 Information not available 07/09/2018 Sex: Unknown Functional Status Question Answer Note LastModified by Organizat ion Details LastModified Time Do you or have you ever used any other forms of tobacco or nicotine? Yes [email or web address] Information not available 06/04/2024 What is your level of alcohol consumption? None Information not available 07/09/2018 Are you currently employed? No Information not available 07/09/2018 What is your occupation? Unemployed Information not available 07/09/2018 Do you or have you ever used e-cigarettes or vape? Current user of electronic cigarettes [email or web address] Information not available 06/04/2024 What is your exercise level? None Information not available 07/09/2018 Mental Status None recorded. Family History Nothing Reported. Medical History Condition Response Diabetes Y High Blood Pressure Y Asthma Y High Cholesterol Y Gynecological History Statement/Question Response Flow Moderate Date of LMP 10/14/2023 Frequency of Cycle (Q days) 2 Menses Monthly Y Duration of Flow (days) 10 Current Control Method None LMP Approximate Obstetrics History GPAL:G 1 P 0 1 0 1 Type Value Multiple Births 0 Induced 0 Spontaneous 0 Premature 1 Living 1 Ectopics 0 Total 1 Immunizations Vaccine Type Date Status Note Provider Nam e and Address Organization Details Recorded Time MMR 7 completed [employer], [place], [place] [facility] 06/16/2024 16:54:52 MMR 0 completed Ramona Carola, [place], [place] [facility] 06/16/2024 16:54:52 Tdap 6 completed [employer], [place] [facility] 06/16/2024 16:54:52 OPV, trivalent 7 completed Ramona Carola, [place] [facility] 06/16/2024 16:54:52 OPV, trivalent 6 completed Ramona Carola, [place] [facility] 06/16/2024 16:54:52 OPV, trivalent 7 completed Ramona Carola, [place] [facility] 06/16/2024 16:54:52 OPV, trivalent 6 completed [employer], [place] [facility] 06/16/2024 16:54:52 OPV, trivalent 1 completed Ramona Carola, [place] [facility] 06/16/2024 16:54:52 OPV, trivalent 6 completed [employer], [place] [facility] 06/16/2024 16:54:52 OPV, trivalent 6 completed Ramona Carola, [place] [facility] 06/16/2024 16:54:52 DTP-Hib 6 completed [employer], [place] [facility] 06/16/2024 16:54:52 DTP-Hib 7 completed Ramona Carola, [place] [facility] 06/16/2024 16:54:52 DTP-Hib 6 completed [employer], [place] [facility] 06/16/2024 16:54:52 DTP-Hib 6 completed [employer], [place] [facility] 06/16/2024 16:54:52 DTP-Hib 6 completed [employer], [place] [facility] 06/16/2024 16:54:52 Influenza, split virus, trivalent, preservative 6 completed [employer], [place] [facility] 06/16/2024 16:54:52 Influenza, split virus, trivalent, preservative 4 completed Ramona Carola, [place] [facility] 06/16/2024 16:54:52 influenza, split (incl. purified surface antigen) 0 completed Ramona Carola, [place] [facility] 06/16/2024 16:54:52 HPV, quadrivalent 1 completed [employer], [place] [facility] 06/16/2024 16:54:52 HPV, quadrivalent 1 completed Ramona Carola, [place] [facility] 06/16/2024 16:54:52 HPV, quadrivalent 2 completed Ramona Carola, [place] [facility] 06/16/2024 16:54:52 Td (adult), 2 Lf tetanus toxoid, preservative free, adsorbed 6 completed [employer], [place] [facility] 06/16/2024 16:54:52 Hep B, adolescent or pediatric 6 completed Ramona Carola, [place] [facility] 06/16/2024 16:54:52 Hep B, adolescent or pediatric 6 completed [employer], [place] [facility] 06/16/2024 16:54:52 Hep B, adolescent or pediatric 6 completed Ramona Carola, [place] [facility] 06/16/2024 16:54:52 Hep B, adolescent or pediatric 6 completed [employer], [place] [facility] 06/16/2024 16:54:52 meningococcal C conjugate 1 completed LAURI Henderson, [place] - [facility] 06/16/2024 16:54:52 DTaP 0 [place] [facility] 06/16/2024 16:54:52 Influenza, split virus, quadrivalent, PF 5 completed LA[place] [facility] 06/16/2024 16:54:52 Influenza, split virus, quadrivalent, PF 9 completed Not Available [facility] 03/22/2019 02:38:04 Tdap 9 completed Not Available [facility] 03/22/2019 02:37:33 Past Encounters Encounter ID Performer Location Encounter Start Date Encounter Closed Date Diagnosis/Indication Diagnosis SNOMED-CT Code Diagnosis ICD10 Code Diagnosis IMO Codes Diagnosis Note [id number] MD Danny Del Toro (Adult Med) [address] [place] [address] [phone] 0 07/09/2018 10:46:09 07/10/2018 09:56:55 Adult health examination 249997649 Z00.00 Administra tion of influenza vaccine 82131414 Z23 Amenorrhea 76410040 N91. 2 Insomnia 592763764 G47.0 0 Administra tion of diphtheria, pertussis, and tetanus vaccine 246006498 Z23 History of asthma 412393 007 Z87.09 Screening for malignant neoplasm of cervix 398603264 Z12.4 Uncontroll ed type 2 diabetes mellitus 746931325 E11.65 Nicotine dependence 5629 4008 F17.200 Chronic constipation 236 148650 K59.09 History of colostomy 161 509368 Z93.3 [id number] MD Danny Del Toro (Adult Med) [address] [place] [address] [phone] 0 07/28/2021 11:57:09 07/28/2021 20:10:21 History of diabetes mellitus 938807714 Z86.39 General ex amination of patient 772347238 Z00.01 SARS-CoV-2 antigen vaccine declined 7623958535 Z28.21 Nicotine dependence 5629 4008 F17.200 Body mass index 40+ - severely obese 402205631 Z68.41 Screening for malignant neoplasm of cervix 668008108 Z12.4 [id number] MD Danny Aburto (SEWING DEMONSTRATOR) [address] [place] [address] [phone] 0 09/01/2021 10:48:05 09/02/2021 10:59:19 Contraception care management 225472648 Z30.9 Patient here to discuss options.- anticipato ry guidance and education provided- follow-up prn [id number] MD Danny Aburto (SEWING DEMONSTRATOR) [address] [place] [address] [id number] 0 10/29/2023 15:43:30 10/29/2023 15:44:36 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 No known trauma, although cannot rule it out. Relation to Nexplanon seems less likely as it is palpated in appropriat e place and nontender. No sign of acute fracture or other abnormalit y on exam.Patie nt advised removing Nexplanon is unlikely to resolve symptoms, although it is always an option if desired. Deferred at this point in favor of physical therapy. - physical therapy- alternate max dose ibuprofen and tylenol on schedule for management of symptoms- consider referral to general surgery for refractory symptoms [id number] MD Danny Del Toro (Adult Med) [address] [place] [address] 15292-285 0 04/07/2024 11:45:38 04/11/2024 16:32:03 Abscess of right thigh 0900749741 6887782 L02.415 History of diabetes mellitus 255474938 Z86.39 Medication monitoring 39 7333693 Z51.81 Unintentio nal weight gain 1404962020 71512 R63.5 [id number] MD Danny Del Toro (Adult Med) [address] [place] [address] [phone] 0 06/04/2024 11:25:17 06/05/2024 11:48:22 Body mass index 40+ - severely obese 547946969 Z68.42 Obesity 378473662 E66.9 Pain in bi lateral legs 2786487505 7414801 M79.604 M79.605 Pain of le ft knee joint 5868768794 44942 M25.527 [id number] Errol Durham MD [facility] (Adult Med) [address] [place] [address] 06/17/2024 14:36:32 06/18/2024 14:35:04 Hyperlipidemia 60334283 E78.5 Pain of le ft knee joint 3837097630 60876 M25.562 Medication monitoring 39 8781172 Z51.81 Health Concerns Section Related Observation LastModified by Organization Detai ls LastModified Time None Recorded Concern Status LastModified by Organization Details LastModified Time None Recorded Advance Directives Directive None Recorded Payers Insurance Date Sequence Insurance Name Policy Number Policy Miller Covered Member ID Miller Member ID Guarantor Name 07/21/2024 1 MEDICA[place] DEPARTMENT [employer] PUBLIC AID Leonarda Shiloh [id number] Leonarda Shiloh 07/21/2024 1 [facility] - DOS PRIOR TO 2020 (MEDICAID REPLACEMENT - HMO) Leonarda Shiloh [id number] Leonarda Shiloh 11/11/2024 1 [facility] (MEDICAID HMO) [id number] Leonarda Shiloh [id number] Leonarda Shiloh Notes Date Note Type Note Provider Name and Address Organization Details Recorded Time 2 text/html ROS as noted in the HPI 26 y/o female who present to discuss options for contraception and to make sure is not currently . No questions or concerns. Raiza Gillis MD Attn: Accounting,[address] [place], [address], [facility] 09/09/2021 15:08:45 4 text/html ROS as noted in the HPI Leonarda is a generally healthy 28 y/o presenting with concern about Nexplanon. Reports Nexplanon has been in place in left arm 2 years without issue. Notes it seems very close to her elbow; previous Nexplanon was higher up.Reports shooting pain from her elbow down to her hand for the past few days. Associated numbness and tingling in her fingers.Has tried some OTC ibuprofen and Tylenol without improvement.No known trauma or inciting factor.No problems with shoulder, neck, or right arm. Patient denies headache, dizziness, chest pain, cough, shortness of breath, abdominal pain, nausea, vomiting, constipation, diarrhea, dysuria, swelling, and skin changes. Raiza Gillis MD Attn: Accounting, [place], [address], [facility] 11/06/2023 10:26:08 5 text/html ROS as noted in the HPI Acute issues only I had a boil She was in the ER on 04/01/2024 where she had an I&D and packing of an abscess in the medial and proximal part of the right thigh. She has been compliant with her Bactrim. Errol Durham MD Attn: Accounting, [place], [address], [facility] 04/07/2024 13:09:07 5 text/html KneeReported by PatientHPIFor location, patient reportsleft. For quality, patient reportsaching. For severity, patient reportsmild. For duration, patient reports4 days. For timing, patient reportsacute. For context, patient reportsfall. For alleviating factors, patient reportsiceandrest. For aggravating factors, patient reportscannot identify,walking,rom, andweight bearing. For associated symptoms, patient reportsno weakness,no numbness,no tingling,no swelling,no redness,no warmth,no ecchymosis,no catching/locking,no popping/clicking,no buckling,no grinding,no instability,no radiation down leg,no drainage,no fever,no chills,no weight loss, andno change in bowel/bladder habits.ROS as noted in the HPI Lately, I have not been able to sleep goodI fell the other day Her legs seem to be moving if she gets comfortable at bedtime, she feels needs to get up and walkand she thinks that she has RLS. She also fell and has pain on the lateral aspect of the left knee. Errol Durham MD Attn: Accounting, [place], [address], [facility] 06/04/2024 13:58:05 5 text/html KneeReported by PatientHPIFor location, patient reportsleft. For quality, patient reportsaching. For severity, patient reportssevereandworst pain 9..5/10. For duration, patient reports1 months. For timing, patient reportsacute. For context, patient reportscannot identifyandfall. For alleviating factors, patient reportslimited weight bearing. For aggravating factors, patient reportsbending/squattingan drom. For associated symptoms, patient reportsno weakness,no numbness,no tingling,no swelling,no redness,no warmth,no ecchymosis,no catching/locking,no popping/clicking,no buckling,no grinding,no instability,no radiation down leg,no drainage,no fever,no chills,no weight loss, andno change in bowel/bladder habits. For previous surgery, patient reportsnone. For prior imaging, patient reportsx ray. For previous injections, patient reportsnone. For previous pt, patient reportsnone. For work related, patient reportsno. For working, patient reportsno.ROS as noted in the HPI I have Osteoarthritis in my kneeI went to the ER for my knee yesterday She was in the ER yesterday, she was told she has OA and needs a MRI. She has an appointment with orthopedics and believes she has a MRI scheduled. Errol Durham MD Attn: Accounting,[address] [facility], [place], [address], [facility] 06/17/2024 18:21:31 OBGyn Episode No OBEpisode recorded.
--- OUTSIDE RECORDS SUMMARY | 2025-01-22 14:23 | XMS_ITS | Clinical Summary ---
Author Organization [facility] Address [address] [place] [address] Care Team Providers Care Director Of Casino Marketing Name Role Phone Unknown, Provider Primary Care Provider Unavaila ble Source Comments [facility],non-owned Affiliates and Associated Physician Practices is amultiple site organization consisting of ambulatory clinics and hospital sitesin [place], [place], [place] and [place]. This disclosure is being madepursuant to the Care Everywhere program and may not contain all information available regarding this patient. Last updated 17.[facility] Jibbigo Allergies Active Allergy Reactions Criticality Noted Date Comments Cinnamon Rash Medium 07/18/2017 Medications * Be aware that medications may not be up to date on this document. Alwaysverify current medications with the patient. Vit-Fe Fumarate-FA ( VITAMIN) 28-0.8 MG tabletIndicati ons: Take 1 tablet by mouth once daily Reasons: Active calcium carbonate (TUMS) 500 MG chew tabletIndicati ons:Heartburn Take 2 tablets by mouth as needed for Heartburn Reasons: Heartburn Active acetaminophen (TYLENOL) 325 MG tablet Take 650 mg by mouth every 4 hours as needed for Fever or Pain Maximum allowable Acetaminophen amount = 4 Grams (4000 mg) / 24 hours. Active albuterol HFA (PROVENTIL;ANGELIA TOLIN;PROAIR) 108 (90 BASE) MCG/ACT inhaler Inhale 2 puffs by mouth every 6 hours as needed Active Vit-Fe Fumarate-FA ( PLUS) 27-1 MG tablet Take 1 tablet by mouth once daily 60 tablet 3 05/17/201 8 Active ferrous sulfate 325 (65 FE) MG tablet Take 1 tablet by mouth daily with breakfast 60 tablet 3 8 Active Additional Information Patient not taking.Reported on 08/08/2017 docusate sodium (COLACE) 100 MG capsule Take 1 capsule by mouth once daily 60 capsule 3 8 Active Additional Information Patient not taking.Reported on 08/08/2017 erythromycin (ROMYCIN) 5 MG/GM ophthalmic ointment Instill into right eye 4 times daily 3.5 g 8 Active ibuprofen (MOTRIN) 600 MG tablet Take 1 tablet by mouth every 6 hours as needed for Pain 30 tablet 8 Active meloxicam (Mobic) 15 MG tabletIndicati ons:Chronic pain of left knee,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 GBS positive 07/18/17 Problem Noted Date Diagnosed Date Group beta Strep positive 07/23/2017 07/18/2017 Immunizations Immunization Administration Dates Next Due TDAP (7yrs+) 11/29/2017 Social History Tobacco Use Types Packs/Day Years Used Date Smoking Tobacco: Every Day Cigarettes 1 14 Smokeless Tobacco: Current Tobacco Cessation:Ready to Q uit: Not Asked; Counseling Given: Not Answered Alcohol Use Standard Drinks/Week Comments No 0 (1 standard drink = 0.6 oz pur e alcohol) PHQ-2 Answer Date Recorded Patient Health Questionnaire-2 Score 6 07/18/2024 Comments No Sex and Gender Information Value Date Recorded Sex Assigned at Not on file Legal Sex Female 5:44 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[employer] Gender Identity Not on file Sexual Orientation Not on file Last Filed Vital Signs Vital Sign Reading Time Taken Comments Blood Pressure 127/59 11/29/2017 4:00 PM CDT Pulse 61 11/29/2017 2:11 PM CDT Temperature 36.6 C (97.8 F) 11/29/2017 2:11 PM CDT Respiratory Rate 18 11/29/2017 2:11 PM CDT Oxygen Saturation 99% 11/29/2017 6:55 PM CDT Inhaled Oxygen Concentration - - Weight 127 kg (280 lb) 07/18/2024 11:12 AM CDT Height 162.6 cm (5' 4) 07/18/2024 11:12 AM CDT Body Mass Index 48.06 07/18/2024 11:12 AM CDT Plan of Treatment Health Maintenance Due Date Last Done Comments HIV SCREENING 2010 HEPATITIS B VACCINE (1 of 3 - 19+ 3-dose series) 2014 PNEUMOCOCCAL VACCINE (1 of 2 - PCV) 2014 PAP SMEAR 2016 HPV VACCINE (1 - 3-dose SCDM series) 2022 DEPRESSION SCREENING 03/05/2024 COVID-19 VACCINE (1 - 2024- season) 2024 INFLUENZA VACCINE (#1) 2024 9, 04/08/2015, 12/16/2014, Additional history exists DTAP/TDAP/TD VACCINES (2 - Td or Tdap) 11/30/2027 11/29/2017 ZOSTER VACCINE (1 of 2) 2045 HEPATITIS C SCREENING Completed 07/19/2017 HIB VACCINE Aged Out No longer eligi ble based on patient's age to complete this topic MENINGOCOCCAL (Group B) VACCINE SHARED DECISION-MAKING Aged Out No longer eligible based on patient's age to complete this topic MENINGOCOCCAL GROUPS A/C/Y/W VACCINE Aged Out No longer eligible based on patient's age to complete this topic Procedures Procedure Name Priority Date/Time Associated Diagnosis Comments HEPATITIS C ANTIBODY Routine 07/19/2017 2:29 PM CDT , unspecified gestational age from Last 3 Months or Most Recently Relevant to Health Maintenance Results * HEPATITIS C ANTIBODY (07/19/2017 2:29 PM CDT) Pathologist [facility] HCV Antibody Screen Non Reactive Non Reactive 07/19/2017 3:37 PM CDT [facility] HCV S/C Ratio 0.11 0.00 - 0.79 07/19/2017 3:37 PM CDT [facility] Comment: Vfdhsn-bc-pjhjkv ratio (S/CO) <0.80: Non Reactive Blood BLOOD SPECIMEN / Unknown Lab Venipuncture / Unknown 07/19/2017 2:29 PM CDT 07/19/2017 2:29 PM CDT Narrative [facility] - 07/19/2017 3:37 PM CDT Non Reactive - Antibodies to Hepatitis C virus (HCV) were not detected, result does not exclude early acute HCV infection. Victoria Damcio MD LAB - CHEMISTRY ORDERABLES F inal Result [facility] [address] [place] [address] from Last 3 Months or Most Recently Relevant to Health Maintenance Insurance Advance Directives * Full Code (Latest Code Status on File) Date Activated Date Inactivated Comments 08/08/2017 8:50 PM 08/08/2017 10:18 PM * Full Code Date Activated Date Inactivated Comments 07/18/2017 6:43 PM 07/19/2017 4:21 PM Care Teams Director Of Casino Marketing Relationship Specialty Start Date End Date Unknown, Provider PCP - General 07/18/24
== END 2025-01-22 13:13 | disposition home or self-care (01) ==
PROVIDERS: Emergency Provider Physician Assistant
DX: M79.652 Pain in left thigh (principal); G89.29 Other chronic pain
CPT/HCPCS: 93971; 96372; 99284; J1885